=== PATIENT | male | born 1950 | race Caucasian/White ===

== ENCOUNTER 2016-09-13 06:50 | Day surgery (SDC) | payer BC, MEDICARE, OTHER ==
[2016-09-08 09:24] VITALS: BMI 32.9
--- NOTE | 2016-09-13 05:49 | P.GSHP ---
History of Present Illness H&P Date: 09/13/16 CHIEF COMPLAINT: Colon screen HISTORY OF PRESENT ILLNESS: The patient is a 66-year-old male who presents for colon screen. Lower endoscopy was offered for further evaluation and management. PAST MEDICAL HISTORY: Please see list. PAST SURGICAL HISTORY: Please see list. MEDICATIONS: Please see list. ALLERGIES: Please see list. SOCIAL HISTORY: No illicit drug use FAMILY HISTORY: No reports of Crohn disease or ulcerative colitis. REVIEW OF ORGAN SYSTEMS: CONSTITUTIONAL: No reports of fevers or chills. PHYSICAL EXAM: VITAL SIGNS: Stable GENERAL: Well-developed pleasant in no acute distress. HEENT: No scleral icterus. Extraocular movements grossly intact. Moist buccal mucosa. NECK: Supple without lymphadenopathy. CHEST: Unlabored respirations. Equal bilateral excursions. CARDIOVASCULAR: Regular rate and rhythm. Distal 2+ pulses. ABDOMEN: Soft, nontender, nondistended. MUSCULOSKELETAL: No clubbing, cyanosis, or edema. ASSESSMENT: 1. High-risk colon polyps. 2. Personal history of colon cancer. 3. Diabetes type 2. 4. Coronary artery disease. PLAN: 1. Benefits and risks of colonoscopy were described. Given his personal history of high-risk polyps and colon cancer, I have recommended repeat lower endoscopy at minimum anywhere between 1-3 years. This will be sooner pending results of his recent colonoscopy. Past Medical History Past Medical History: Cancer, COPD, Diabetes Mellitus, Hyperlipidemia, Hypertension Additional Past Medical History / Comment(s): hx of colon cancer, hx of bowel blockage, states has 2 "blockages in heart" current upper respitory symptoms, states cough, no fever, not coughing up anything History of Any Multi-Drug Resistant Organisms: None Reported Past Surgical History: Bowel Resection Past Anesthesia/Blood Transfusion Reactions: No Reported Reaction Past Psychological History: No Psychological Hx Reported Smoking Status: Former smoker Past Alcohol Use History: None Reported Additional Past Alcohol Use History / Comment(s): states quit smoking 2006, smoked 1ppd since age 11,(1961) Past Drug Use History: None Reported - Past Family History Father Family Medical History: CVA/TIA Sister(s) Family Medical History: Cancer Additional Family Medical History / Comment(s): ovarian cancer Medications and Allergies Home Medications Medication Instructions Recorded Confirmed Type Albuterol Inhaler [Ventolin 2 puff INHALATION RT-Q4H PRN 05/18/14 09/08/16 History Inhaler] Aspirin EC [Ecotrin] 81 mg PO DAILY 05/18/14 09/08/16 History Carvedilol [Coreg] 12.5 mg PO BID 05/18/14 09/08/16 History Lisinopril 40 mg PO DAILY 05/18/14 09/08/16 History Multivitamin [Men's Multi-Vitamin] 1 tab PO DAILY 05/18/14 09/08/16 History Simvastatin [Zocor] 10 mg PO HS 05/18/14 09/08/16 History Triamterene-Hctz 37.5-25Mg 1 cap PO DIRECTED PRN 05/18/14 09/08/16 History [Dyazide 37.5-25 Capsule] metFORMIN HCL [Glucophage] 500 mg PO BID 05/18/14 09/08/16 History Cholecalciferol [Vitamin D3] 1,000 unit PO DAILY 08/17/15 09/08/16 History Fish Oil/Dha/Epa [Fish Oil 1,200 1 cap PO BID 08/17/15 09/08/16 History mg Fish Oil] Tiotropium Finger [Spiriva 1 puff INHALATION RT-DAILY 08/17/15 09/08/16 History Respimat] Ubidecarenone [Co Q-10] 100 mg PO DAILY 08/17/15 09/08/16 History Albuterol Nebulized [Ventolin 1 applic INHALATION DIRECTED PRN 09/08/1609/08 History Nebulized] Diphenhydra/Phenyleph/Acetamin 1 applic PO DIRECTED PRN 09/08/16 09/08/16 History [Theraflu Nt Severe Cld-Cgh Pkt] cloNIDine HCL [Catapres] 0.1 mg PO BID 09/08/16 09/08/16 History Allergies Allergy/AdvReac Type Severity Reaction Status Date / Time No Known Allergies Allergy Verified 08/17/15 19:40
[~2016-09-13 06:50] MED LIST: LACTATED RINGERS 1,000 ML IV SCH; LIDOCAINE 1% 20 ML VIAL (10MG/ML) FOR IV START INTRADERMA PRN
[2016-09-13] MEDS ORDERED: LACTATED RINGERS 1,000 ML IV ONE (07:07)
[2016-09-13 07:10] VITALS: TEMP 96.8
[2016-09-13 07:34] LABS: Glucose,Whole Blood 135 mg/dL (75-99)
[2016-09-13] MEDS ORDERED: LIDOCAINE 1% INJ 10MG/ML (20 ML MDV) ONE (07:38)
[2016-09-13] MEDS ORDERED: PROPOFOL 10 MG/ML 20 ML VIAL IV ONE (07:38)
--- NOTE | 2016-09-13 08:03 | P.PCN ---
Date of Procedure: 09/13/16 Description of Procedure: PREOPERATIVE DIAGNOSIS: Colonoscopy screening. History of colon cancer. History of colon polyps. POSTOPERATIVE DIAGNOSIS: Colonoscopy screening. Diverticulosis, scattered, moderate. History of colon cancer. History of colon polyps. Benign neoplasm at ileocecal anastomosis. Lipoma at mid transverse colon, 90 cm. OPERATION: Colonoscopy to the ileocecal valve and appendiceal orifice. Colonoscopy with snare polypectomy at ileocecal anastomosis. SURGEON: Lacie Lockhart MD. ANESTHESIA: MAC. INDICATIONS: The patient is a 66-year-old male who presents for colonoscopy screening. He has personal history of colon cancer as well as colon polyps. His colon cancer was treated over 5 years ago. Last colonoscopy was within 3 years. Benefits and risks were described and informed consent was obtained. DESCRIPTION OF PROCEDURE: The patient had undergone Gatorade, MiraLAX and Dulcolax prep. He had been brought into the operating room and laid in the left lateral decubitus position. After adequate intravenous sedation, the rectum was examined with 2% lidocaine jelly. No external hemorrhoids were encountered. The rectal tone was within normal limits. No lesions were palpated in the rectal vault. An Olympus colonoscope was advanced until the ileocecal valve and appendiceal orifice were clearly viewed. The sigmoid colon was moderately redundant and tortuous. Abdominal wall pressure was required to obtain used to the proximal colon. The prep was fair with clear visualization of the mucosal folds. The scope was removed with visualization of each mucosal fold. A 8 mm tubular adenoma was snare polypectomy at along the ileocecal anastomosis of the proximal colon. At 90 cm from the anal verge/proximal transverse colon, a 1 cm benign lipoma was identified. Moderate large scattered diverticulosis was encountered. No evidence of focal colitis was found. Retroflexion of the scope demonstrated grade 1 internal hemorrhoids without active bleeding or inflammation. The colon was desufflated. The patient had tolerated the procedure well. Withdrawal time was over 6 minutes. FINDINGS: Internal hemorrhoids, grade 1 No external prolapsed hemorrhoids. No arteriovenous malformations. Tubular adenoma along the ileocecal anastomosis. Moderate and severe pandiverticulosis. Lipoma, 1 cm at mid transverse colon without obstruction of the lumen. No focal colitis. RECOMMENDATIONS: Repeat lower endoscopy in 2-3 years with history of colon cancer multiple colon polyps, 2019.
[2016-09-13 08:25] VITALS: BP 125/85; PULSE 85; RESP 18
== END 2016-09-13 08:45 | disposition home or self-care (01) ==
LOC: ORWHC2ENDO 06:50
PROVIDERS: ATTEND Surgery Plastic and Reconstructive Surgery
DX: Z12.11 Encounter for screening for malignant neoplasm of colon (principal); D12.0 Benign neoplasm of cecum; Z86.010 Personal history of colon polyps; K57.30 Diverticulosis of large intestine without perforation or abscess without bleeding; Z85.038 Personal history of other malignant neoplasm of large intestine; I10 Essential (primary) hypertension; E78.5 Hyperlipidemia, unspecified; E11.9 Type 2 diabetes mellitus without complications; I25.10 Atherosclerotic heart disease of native coronary artery without angina pectoris; J44.9 Chronic obstructive pulmonary disease, unspecified; I25.2 Old myocardial infarction; J45.909 Unspecified asthma, uncomplicated; Z90.49 Acquired absence of other specified parts of digestive tract; Z87.891 Personal history of nicotine dependence; Z79.84 Long term (current) use of oral hypoglycemic drugs; Z79.82 Long term (current) use of aspirin; Z79.899 Other long term (current) drug therapy
CPT/HCPCS: 88305; 45385; J2001; J2704; 99153

== ENCOUNTER → 2016-09-19 | Outpatient (CLI) | payer BC, OTHER | END | disposition home or self-care (01) | LOC: RADECHMAIN 11:46 | PROVIDERS: ATTEND Internal Medicine Cardiovascular Disease | DX: R00.1 Bradycardia, unspecified (principal); R00.0 Tachycardia, unspecified | CPT/HCPCS: 93225; 93226 ==

== ENCOUNTER → 2016-11-13 | Outpatient (CLI) | payer OTHER ==
--- NOTE | 2016-11-13 11:22 | CT ---
EXAMINATION TYPE: CT abdomen pelvis wo con DATE OF EXAM: 11/13/2016 11:03 AM COMPARISON: NONE INDICATION: Right flank pain DLP: 1192 mGycm, Automated exposure control for dose reduction was used. CONTRAST: 0 mL of Omnipaque 300. Study performed without Oral Contrast TECHNIQUE: Axial images were obtained from above the diaphragm to the pubic rami in the axial plane a t 5 mm thick sections. Reconstructed images are reviewed on the computer in the coronal plane. FINDINGS: Limited CT sections are obtained the lung bases. The lung bases are clear. Coronary artery calcific ation is present. CT ABDOMEN: Liver: Normal Spleen: Normal Pancreas: Normal Adrenal glands: The adrenal glands are normal. Gallbladder: Normal Kidneys: No masses are evident. No hydronephrosis is present. There is a 2.8 cm cyst on the anterio r left mid kidney measuring -1 Hounsfield units. A subtle upper pole renal cyst may be present measur ing 1.8 cm and 11 Hounsfield units. There is a cyst at the inferior pole right kidney measuring 2.7 c m and -12 Hounsfield units. An exophytic oval density measuring 1.6 cm on the lateral inferior pole r ight kidney measuring 0 Hounsfield units. No renal stones are evident. No hydronephrosis is present. Aorta: Vascular calcification is within the aorta. Inferior vena cava: Normal. There is subtle increased density within the mesentery with a few small mesenteric lymph nodes within the left midabdomen. Consider mesenteric adenitis left midabdomen. Correlate with location of the pa tient's pain. CT PELVIS: Diverticular changes are within the sigmoid colon. No suspicious inflammatory changes to suggest acut e diverticulitis is evident. Loops of bowel lack oral contrast limiting their evaluation. Partial hem icolectomy appears to been performed. Postsurgical changes are within the right midabdomen of bowel. Appendix: Not identified Urinary bladder: Normal. Genitourinary structures: Prostate is enlarged and contains calcification. Osseous structures: No suspicious lytic or sclerotic lesions. IMPRESSIONS: 1. No right renal or ureteral stones evident. No hydronephrosis is present. 2. Bilateral renal cysts. 3. Suggestion of subtle mesenteric adenitis within the left midabdomen.
[2016-11-13 11:27] LABS: ALT 47 U/L (21-72); AST 32 U/L (17-59); Alkaline Phosphatase 108 U/L (38-126); Anion Gap 14 mmol/L; Blood Urea Nitrogen 18 mg/dL (9-20); Calcium 11.3 mg/dL (8.4-10.2); Carbon Dioxide 23 mmol/L (22-30); Chloride 109 mmol/L (98-107); Glucose 139 mg/dL (74-99); Non-African American GFR(MDRD) >60 (>60 ml/min/1.73 sqM); Potassium 4.6 mmol/L (3.5-5.1); Sodium 146 mmol/L (137-145); Total Bilirubin 0.8 mg/dL (0.2-1.3); Total Protein 7.5 g/dL (6.3-8.2)
[2016-11-13 11:28] LABS: Basophils % (A) 1 %; CH 30.6; CHCM 33.3; Eosinophils # (A) 0.1 k/uL (0-0.7); Eosinophils % (A) 2 %; HCT 47.4 % (39.0-53.0); HDW 2.78; HGB 15.9 gm/dL (13.0-17.5); Luc # (Auto) 0.15; Luc % (Auto) 2; Lymphocytes # (A) 1.6 k/uL (1.0-4.8); Lymphocytes % (A) 23 %; MCHC 33.6 g/dL (31.0-37.0); MCV 92.4 fL (80.0-100.0); Mean Platelet Volume 8.2; Monocytes # (A) 0.5 k/uL (0-1.0); Monocytes % (A) 8 %; Neutrophils # (A) 4.6 k/uL (1.3-7.7); Neutrophils % (A) 65 %; RBC 5.13 m/uL (4.30-5.90); RDW 13.4 % (11.5-15.5); WBC (Perox) 6.81
[2016-11-13 11:53] LABS: Appearance,Urine Clear (Clear); Bilirubin,Urine Negative (Negative); Calcium Oxalate Crystals,Urine Many /hpf; Glucose,Urine (UA) 2+ (Negative); Ketones,Urine Trace (Negative); Leukocyte Esterase,Urine Small (Negative); Mucus,Urine Rare /hpf; Nitrite,Urine Negative (Negative); Particle Count 2857; Protein,Urine Trace (Negative); RBC,Urine 11 /hpf (0-5); Specific Gravity,Urine 1.024 (1.001-1.035); Squamous Epithelial Cell,Urine <1 /hpf (0-4); UA Billing (MACRO vs. MICRO) MICRO; Urobilinogen,Urine <2.0 mg/dL (<2.0); WBC,Urine 6 /hpf (0-5)
== END | disposition home or self-care (01) ==
LOC: RADCTMAIN 09:40
PROVIDERS: ATTEND Internal Medicine Critical Care Medicine
DX: N20.0 Calculus of kidney (principal)
CPT/HCPCS: 36415; 74176; 80053; 81001; 85025; 87086

== ENCOUNTER → 2016-11-14 | Outpatient (CLI) | payer OTHER | END | disposition home or self-care (01) | LOC: LABWHC1 08:40 | PROVIDERS: ATTEND Internal Medicine Critical Care Medicine | DX: E83.52 Hypercalcemia (principal) | CPT/HCPCS: 36415; 83970 ==

== ENCOUNTER → 2016-11-27 | Outpatient (CLI) | payer OTHER ==
--- NOTE | 2016-11-27 16:02 | NM ---
EXAMINATION TYPE: NM parathyroid DATE OF EXAM: 11/27/2016 3:44 PM COMPARISON: NONE HISTORY: 66-year-old male elevated lab findings TECHNIQUE: Following administration of 24.7 mCi Tc99m Sestamibi. Anterior projection images of the ne ck and chest were obtained 10 minutes and 3 hours post injection FINDINGS: Thyroid tracer washout: Delayed images demonstrate partial, near complete tracer washout from the thy roid. Parathyroid uptake: None. The 3 hour delayed images do not demonstrate any focal abnormal persistent uptake in the region of the parathyroid glands to suggest parathyroid adenoma. Normal uptake: There is physiological tracer uptake in the salivary glands and thyroid gland. IMPRESSION: No scintigraphic evidence for parathyroid adenoma.
== END | disposition home or self-care (01) ==
LOC: RADNMMAIN 11:29
PROVIDERS: ATTEND Internal Medicine Critical Care Medicine
DX: R79.9 Abnormal finding of blood chemistry, unspecified (principal)
CPT/HCPCS: 78070; A9500

== ENCOUNTER 2017-10-11 14:01 | Emergency (ER) | payer OTHER ==
[2017-10-11 14:53] LABS: Basophils % (A) 1 %; Eosinophils # (A) 0.2 k/uL (0-0.7); Eosinophils % (A) 2 %; HCT 43.6 % (39.0-53.0); HGB 14.7 gm/dL (13.0-17.5); Lymphocytes # (A) 1.6 k/uL (1.0-4.8); Lymphocytes % (A) 21 %; MCH 29.6 pg (25.0-35.0); MCHC 33.9 g/dL (31.0-37.0); MCV 87.4 fL (80.0-100.0); Mean Platelet Volume 7.6; Monocytes # (A) 0.5 k/uL (0-1.0); Monocytes % (A) 6 %; Neutrophils # (A) 5.4 k/uL (1.3-7.7); Neutrophils % (A) 69 %; Platelet Count 174 k/uL (150-450); RBC 4.98 m/uL (4.30-5.90); RDW 13.9 % (11.5-15.5); WBC 7.8 k/uL (3.8-10.6)
[2017-10-11 14:59] LABS: ALT 26 U/L (21-72); AST 13 U/L (17-59); Albumin 4.2 g/dL (3.5-5.0); Alkaline Phosphatase 104 U/L (38-126); Anion Gap 11 mmol/L; Blood Urea Nitrogen 16 mg/dL (9-20); Calcium 11.6 mg/dL (8.4-10.2); Carbon Dioxide 25 mmol/L (22-30); Chloride 108 mmol/L (98-107); Glucose 113 mg/dL (74-99); Potassium 4.4 mmol/L (3.5-5.1); Sodium 144 mmol/L (137-145); Total Bilirubin 0.4 mg/dL (0.2-1.3); Total Protein 7.1 g/dL (6.3-8.2)
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
--- NOTE | 2017-10-11 15:29 | XR ---
EXAMINATION TYPE: XR foot complete LT DATE OF EXAM: 10/11/2017 COMPARISON: NONE HISTORY: Nonhealing wound lateral side of foot TECHNIQUE: Three-view left foot FINDINGS: There is an oblique fracture of the mid second metatarsal. There is displacement of the dis odilia fracture fragment with the more proximal portion of the distal fracture fragment adjacent to the third metatarsal. There is an oblique fracture through the mid diaphysis third metatarsal. This may have somewhat rafi h margins. This may be an old fracture with nonunion. There is an oblique fracture of the proximal metaphysis first metatarsal. There is slight lateral d isplacement of the distal fracture fragment. There appears be a subtle nondisplaced fracture of the proximal metaphysis proximal phalanx third dig it. Similar appearance may be at the proximal metaphysis proximal phalanx fourth digit suspicious for an additional nondisplaced fracture.. Soft tissue swelling is over the distal foot. There appears to be some soft tissue injury evident ove r the distal dorsal foot. Large plantar calcaneal and Achilles tendon heel spurs are present. IMPRESSION: 1. Fractures of the first second and third diaphyseal metatarsals. Consider Lisfranc fracture within the differential. Others displacement of these fracture fragments discussed above. 2. Nondisplaced fractures of the proximal metaphyseal third and fourth digits may be present. 3. Calcaneal heel spurs. 4. Soft tissue swelling distal dorsal foot
[2017-10-11] MEDS ORDERED: CLINDAMYCIN 900 MG in DEXTROSE 5% IN WATER 50 ML IVPB STA ×2 (16:03)
[2017-10-11 16:59] VITALS: BP 162/94; PULSE 73; RESP 16; TEMP 98.6
== END 2017-10-11 16:59 | disposition home or self-care (01) ==
LOC: EC 14:01
DX: L08.9 Local infection of the skin and subcutaneous tissue, unspecified (principal); S92.302S Fracture of unspecified metatarsal bone(s), left foot, sequela; R40.2412 Glasgow coma scale score 13-15, at arrival to emergency department; E78.5 Hyperlipidemia, unspecified; I10 Essential (primary) hypertension; J44.9 Chronic obstructive pulmonary disease, unspecified; Z87.891 Personal history of nicotine dependence; Z79.1 Long term (current) use of non-steroidal anti-inflammatories (NSAID); Z79.51 Long term (current) use of inhaled steroids; Z79.82 Long term (current) use of aspirin; Z79.899 Other long term (current) drug therapy; Z85.038 Personal history of other malignant neoplasm of large intestine; Z90.49 Acquired absence of other specified parts of digestive tract; X58.XXXS Exposure to other specified factors, sequela
CPT/HCPCS: 36415; 80053; 85025; 87070; 87075; 87077; 87186; 87205; 96365; 99283

== ENCOUNTER 2017-12-31 17:55 | Inpatient (IN) | payer OTHER, MEDICARE ==
[2017-12-31] MEDS ORDERED: SODIUM CHLORIDE 0.9% 500 ML IV STA (18:17)
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
[2017-12-31 18:30] LABS: Basophils % (A) 1 %; Eosinophils # (A) 0.1 k/uL (0-0.7); Eosinophils % (A) 2 %; HCT 44.6 % (39.0-53.0); HGB 14.7 gm/dL (13.0-17.5); Lymphocytes # (A) 1.2 k/uL (1.0-4.8); Lymphocytes % (A) 16 %; MCH 29.5 pg (25.0-35.0); MCHC 32.9 g/dL (31.0-37.0); MCV 89.5 fL (80.0-100.0); Mean Platelet Volume 7.7; Monocytes # (A) 0.4 k/uL (0-1.0); Monocytes % (A) 6 %; Neutrophils # (A) 5.6 k/uL (1.3-7.7); Neutrophils % (A) 75 %; Platelet Count 140 k/uL (150-450); RBC 4.98 m/uL (4.30-5.90); RDW 15.5 % (11.5-15.5); WBC 7.5 k/uL (3.8-10.6)
[2017-12-31 18:43] LABS: ALT 27 U/L (21-72); AST 16 U/L (17-59); Albumin 4.2 g/dL (3.5-5.0); Alkaline Phosphatase 84 U/L (38-126); Anion Gap 13 mmol/L; Blood Urea Nitrogen 11 mg/dL (9-20); Calcium 10.6 mg/dL (8.4-10.2); Carbon Dioxide 24 mmol/L (22-30); Chloride 105 mmol/L (98-107); Glucose 112 mg/dL (74-99); Magnesium 1.8 mg/dL (1.6-2.3); Potassium 4.6 mmol/L (3.5-5.1); Sodium 142 mmol/L (137-145); Total Bilirubin 0.4 mg/dL (0.2-1.3); Total Protein 6.5 g/dL (6.3-8.2)
[2017-12-31 18:55] LABS: Creatine Kinase 37 U/L (55-170)
[2017-12-31 19:02] LABS: D-Dimer 0.45 mg/L FEU (<0.60); INR 1.1 (<1.2); Prothrombin Time 10.4 sec (9.0-12.0)
[2017-12-31 19:07] LABS: Creatine Kinase MB 0.3 ng/mL (0.0-2.4); Partial Thromboplastin Time 20.7 sec (22.0-30.0); Troponin I <0.012 ng/mL (0.000-0.034)
--- NOTE | 2017-12-31 19:33 | XR ---
EXAMINATION: XR chest 2V DATE AND TIME: 12/31/2017 6:55 PM ORDERING PROVIDER: Nikhil Ward MD CLINICAL INDICATION: syncope TECHNIQUE: PA and lateral COMPARISON: 08/18/2015 DESCRIPTION: The lungs are clear. The pleural spaces are negative. The cardiac silhouette is not enlarged. The mediastinal and pleural silhouettes are unremarkable. The skeletal structures are intact without focal findings. The soft tissues are unremarkable. IMPRESSION: NO ACUTE PROCESS.
--- NOTE | 2017-12-31 19:50 | CT ---
EXAMINATION: CT brain wo con DATE AND TIME: 12/31/2017 7:23 PM ORDERING PROVIDER: Nikhil Ward MD CLINICAL INDICATION: Pain syncope TECHNIQUE: Standard departmental protocol. DLP 1060.90 mGy-cm. COMPARISON: None. DESCRIPTION: The calvarium is intact. There is no intracranial hemorrhage. There is no mass or mass e ffect. There is no definite new attenuation defect. Remainder of the intra-axial and extra-axial comp artment examination is unremarkable. The paranasal sinuses, middle ear cavities, and mastoid sinus ai r cells are clear. The orbits are intact. IMPRESSION: NO ACUTE PROCESS.
[2017-12-31] MEDS ORDERED: NITROGLYCERIN SL TABS 0.4 MG TAB SUBLINGUAL PRN (20:03)
[2017-12-31] MEDS ORDERED: hydrALAZINE HCL 20 MG/ML 1 ML VIAL IVP STA ×2 (20:09→20:52)
[2017-12-31] MEDS: hydrALAZINE HCL 20 MG/ML 1 ML VIAL IVP STA ×2 (20:20→20:53)
[2017-12-31 21:14] LABS: Glucose,Whole Blood 115 mg/dL (75-99)
[2017-12-31] MEDS ORDERED: NON-FORMULARY DRUG (Aspirin Ec 81 MG) PO SCH (23:00)
[2017-12-31] MEDS ORDERED: MELATONIN 3 MG TABLET PO PRN (23:19)
[2017-12-31 23:47] LABS: Appearance,Urine Clear (Clear); Bilirubin,Urine Negative (Negative); Blood,Urine Negative (Negative); Color,Urine Colorless; Glucose,Urine (UA) Negative (Negative); Ketones,Urine Negative (Negative); Leukocyte Esterase,Urine Negative (Negative); Nitrite,Urine Negative (Negative); PH, Urine 7.5 (5.0-8.0); Protein,Urine Negative (Negative); Specific Gravity,Urine 1.003 (1.001-1.035); Urobilinogen,Urine <2.0 mg/dL (<2.0)
[2018-01-01 00:12] LABS: Creatine Kinase 33 U/L (55-170)
[2018-01-01 00:26] LABS: Creatine Kinase MB 0.3 ng/mL (0.0-2.4); Troponin I <0.012 ng/mL (0.000-0.034)
[2018-01-01] MEDS: DOCUSATE 100 MG CAP PO SCH ×3 (01:57→19:51)
[2018-01-01] MEDS: HEPARIN SODIUM,PORCINE 5,000 UNIT/ML 1 ML VIAL SQ SCH ×3 (01:57→19:52)
[2018-01-01] MEDS: ATORVASTATIN 10 MG TAB PO SCH ×2 (01:57→19:51)
[2018-01-01] MEDS: PANTOPRAZOLE 40 MG/10 ML VIAL IVP SCH ×2 (01:57→08:30)
[2018-01-01] MEDS: ACETAMINOPHEN TAB 500 MG TAB PO PRN ×3 (01:58→18:31)
[2018-01-01 02:57] LABS: Glucose,Whole Blood 109 mg/dL (75-99)
[2018-01-01] MEDS ORDERED: ONDANSETRON 4 MG/2 ML VIAL IVP PRN (03:04)
[2018-01-01 05:58] LABS: Basophils % (A) 0 %; Eosinophils # (A) 0.1 k/uL (0-0.7); Eosinophils % (A) 1 %; HCT 43.6 % (39.0-53.0); HGB 14.4 gm/dL (13.0-17.5); Lymphocytes # (A) 1.3 k/uL (1.0-4.8); Lymphocytes % (A) 14 %; Mean Platelet Volume 7.4; Monocytes # (A) 0.5 k/uL (0-1.0); Monocytes % (A) 5 %; Neutrophils # (A) 6.9 k/uL (1.3-7.7); Neutrophils % (A) 78 %; Platelet Count 164 k/uL (150-450); RBC 4.79 m/uL (4.30-5.90); RDW 15.6 % (11.5-15.5); WBC 8.9 k/uL (3.8-10.6)
[2018-01-01 06:10] LABS: Anion Gap 13 mmol/L; Blood Urea Nitrogen 9 mg/dL (9-20); Calcium 10.8 mg/dL (8.4-10.2); Carbon Dioxide 24 mmol/L (22-30); Chloride 108 mmol/L (98-107); Cholesterol 103 mg/dL (<200); Glucose 108 mg/dL (74-99); HDL Cholesterol 36 mg/dL (40-60); LDL Cholesterol,Calculated 47 mg/dL (0-99); Magnesium 1.9 mg/dL (1.6-2.3); Sodium 145 mmol/L (137-145); Triglycerides 102 mg/dL (<150)
[2018-01-01 06:12] LABS: Glucose,Whole Blood 115 mg/dL (75-99)
[2018-01-01 06:22] LABS: Creatine Kinase 28 U/L (55-170)
[2018-01-01 06:34] LABS: Creatine Kinase MB 0.3 ng/mL (0.0-2.4); Troponin I <0.012 ng/mL (0.000-0.034)
[2018-01-01] MEDS: ALBUTEROL NEBULIZED 2.5 MG/3 ML INHALATION PRN ×2 (07:44→20:29)
[2018-01-01] MEDS: SYMBICORT 160-4.5 MCG INHALER INHALATION SCH ×3 (07:45→20:13)
[2018-01-01] MEDS ORDERED: ASPIRIN 325 MG TAB PO SCH (09:00)
[2018-01-01 09:22] VITALS: BMI 29.0
[2018-01-01 12:00] LABS: Glucose,Whole Blood 96 mg/dL (75-99)
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
--- NOTE | 2018-01-01 14:13 | US ---
EXAMINATION TYPE: US carotid duplex BILAT DATE OF EXAM: 01/01/2018 COMPARISON: NONE CLINICAL HISTORY: syncope. EXAM MEASUREMENTS: RIGHT: Peak Systolic Velocity (PSV) cm/sec ----- Right CCA: 83.3 ----- Right ICA: 91.2 ----- Right ECA: 100.0 ICA/CCA ratio: 1.1 RIGHT: End Diastole cm/sec ----- Right CCA: 15.5 ----- Right ICA: 23.3 ----- Right ECA: 7.9 LEFT: Peak Systolic Velocity (PSV) cm/sec ----- Left CCA: 106.2 ----- Left ICA: 102.3 ----- Left ECA: 120.0 ICA/CCA ratio: 1.0 LEFT: End Diastole cm/sec ----- Left CCA: 11.6 ----- Left ICA: 21.5 ----- Left ECA: 7.7 VERTEBRALS (direction of flow): Right Vertebral: Antegrade Left Vertebral: Antegrade Rhythm: Arrhythmia Grayscale images show mild peripheral plaque at carotid bulb level, right worse than left. Velocity m easurements and ratios remain within normal limits and bilateral internal carotid arteries. IMPRESSION: No hemodynamically significant stenosis is seen in either internal carotid artery. Nikhil hnologist did note some cardiac arrhythmia during real-time scanning. If this is not known finding fu rther investigation with cardiac Holter monitoring would be advised.
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
--- NOTE | 2018-01-01 16:31 | ECHOF ---
Referral Reason:syncope MEASUREMENTS -------- HEIGHT: 167.6 cm WEIGHT: 113.9 kg BP: 152/87 RVIDd: 2.8 cm (< 3.3) IVSd: 1.4 cm (0.6 - 1.1) LVIDd: 4.6 cm (3.9 - 5.3) LVPWd: 1.3 cm (0.6 - 1.1) IVSs: 1.9 cm LVIDs: 2.5 cm LVPWs: 1.7 cm LA Diam: 1.3 cm (2.7 - 3.8) LAESV Index (A-L): 18.61 ml/m Ao Diam: 4.1 cm (2.0 - 3.7) AV Cusp: 2.7 cm (1.5 - 2.6) LA Diam: 3.6 cm (2.7 - 3.8) MV E [place]: 1.42 m/s MV DecT: 193 ms MV A [place]: 0.85 m/s MV E/A Ratio: 1.66 AV maxP.29 mmHg AV meanP.90 mmHg RAP: 10.00 mmHg RVSP: 21.81 mmHg FINDINGS -------- Resting bradycardia (HR<60bpm). This was a technically difficult study with suboptimal views. The left ventricular size is normal. There is mild concentric left ventricular hypertrophy. Left ventricular systolic function is hyperdynamic with an estimated EF of >70%. The right ventricle is normal in size and function. Normal LA size by volume 22+/-6 ml/m2. RA appears enlarged. 3ml of Lumason was utilized for enhancement of images. There is mild aortic valve sclerosis. Trace amount of aortic regurgitation. There is no evidence of aortic stenosis. The mitral valve leaflets are mildly thickened. There is trace to mild mitral regurgitation. Trace tricuspid regurgitation present. Right ventricular systolic pressure is normal at < 35 mmHg. There is no evidence of pulmonary hypertension. The pulmonic valve was not well visualized. The aortic root size is normal. The IVC is dilated with normal collapse. There is no pericardial effusion. CONCLUSIONS -------- 1. Resting bradycardia (HR<60bpm). 2. This was a technically difficult study with suboptimal views. 3. The left ventricular size is normal. 4. There is mild concentric left ventricular hypertrophy. 5. Left ventricular systolic function is hyperdynamic with an estimated EF of >70%. 6. Normal LA size by volume 22+/-6 ml/m2. 7. RA appears enlarged. 8. 3ml of Lumason was utilized for enhancement of images. 9. There is mild aortic valve sclerosis. 10. Trace amount of aortic regurgitation. 11. The mitral valve leaflets are mildly thickened. 12. There is trace to mild mitral regurgitation. 13. Trace tricuspid regurgitation present. 14. Right ventricular systolic pressure is normal at < 35 mmHg. 15. There is no evidence of pulmonary hypertension. 16. The pulmonic valve was not well visualized. 17. The aortic root size is normal. 18. The IVC is dilated with normal collapse. 19. There is no pericardial effusion. IRRIGATION EQUIPMENT MECHANIC: Florin Mota RDCS
[2018-01-01 17:13] LABS: Glucose,Whole Blood 142 mg/dL (75-99)
[2018-01-01] MEDS: HYDROcodone/APAP 10-325MG 1 EACH TAB PO PRN (18:32)
[2018-01-01] MEDS: amLODIPine 5 MG TAB PO SCH (19:52)
[2018-01-01 20:51] LABS: Glucose,Whole Blood 132 mg/dL (75-99)
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
[2018-01-02 06:16] LABS: Glucose,Whole Blood 99 mg/dL (75-99)
[2018-01-02 07:49] VITALS: BP 144/63; RESP 18; TEMP 98.1
[2018-01-02] MEDS: DOCUSATE 100 MG CAP PO SCH (07:53)
[2018-01-02] MEDS: amLODIPine 5 MG TAB PO SCH (07:53)
[2018-01-02] MEDS: ACETAMINOPHEN TAB 500 MG TAB PO PRN (07:53)
[2018-01-02] MEDS: PANTOPRAZOLE 40 MG/10 ML VIAL IVP SCH (07:53)
[2018-01-02] MEDS: HEPARIN SODIUM,PORCINE 5,000 UNIT/ML 1 ML VIAL SQ SCH (07:54)
[2018-01-02] MEDS: ALBUTEROL NEBULIZED 2.5 MG/3 ML INHALATION PRN ×2 (08:38→11:46)
[2018-01-02] MEDS: SYMBICORT 160-4.5 MCG INHALER INHALATION SCH (08:38)
[2018-01-02 08:54] VITALS: PULSE 56
[2018-01-02] MEDS ORDERED: ASPIRIN 81 MG PO SCH (09:00)
[2018-01-02 11:39] LABS: Glucose,Whole Blood 79 mg/dL (75-99)
[2018-01-02] MEDS: HYDROcodone/APAP 10-325MG 1 EACH TAB PO PRN (12:08)
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
--- NOTE | 2018-01-02 17:01 | PN ---
PROGRESS NOTE Mr. Rakesh Neal is a 67-year-old gentleman seen by me yesterday. He had a 2 as to 1 heart block, but after holding Coreg for 48 hours, he is back in sinus rhythm with a UT interval that is within normal limits at upper limits of normal and there is no evidence of any second-degree heart block. He is asymptomatic ambulating. Vital signs are stable. S1-S2 heard normally. Lungs are clear. Abdomen and lower extremity exam is unchanged. Plan is to stay off the beta blockers and he can be discharged on current medical regimen. I explained to the patient and that he will need to be followed closely and he will probably require a Holter also as an outpatient. I explained to him that he has underlying conduction system disease and he should not be on any rate lowering agents. The patient's thyroid function tests were normal. Echocardiogram also revealed preserved systolic function. RADHA / MANUELN: [id number] /
--- NOTE | 2018-01-03 19:33 | P.DS ---
Providers Date of admission: 12/31/17 20:03 Expected date of discharge: 01/02/18 Attending physician: Melvi Carmona Consults: 12/31/17 20:03 Consult Physician Urgent Consulting Provider: [facility] Consult Reason/Comments: Syncope, bradycardia Do you want consulting provider notified?: Yes Primary care physician: [facility] Course: Final Diagnoses: -Syncope: Secondary to second-degree AV block Mobitz type II with 2 to 1 block.Coreg discontinued. CAT scan of the head and the bilateral carotid Doppler which did not show any significant abnormality. -COPD without any acute exacerbation -Recent traumatic pneumothorax patient is saturating well now no issues with that at this time -Primary hyperparathyroidism -Coronary artery disease -Hypertension -Hyperlipidemia -Type 2 diabetes mellitus -History of gout Hospital course:65-year-old male with a history of COPD, on beta jaja Coreg came in with complaints of multiple syncopal episodes. found to have heart rate going down to 30s.patient's Coreg dose was recently decreased and patient is found to be in Mobitz type II second-degree AV block. Patient is off for a beta jaja. Monitored overnight. Patient was evaluated by cardiology. EKG repeated, reporting sinus rhythm with first-degree AV block. Significant clinical improvement. Cleared by cardiology for discharge. Patient is being discharged home in a stable condition with guarded prognosis. PHYSICAL EXAMINATION: GENERAL: The patient is alert and oriented x3, not in any acute distress. CARDIOVASCULAR: S1 and S2 present. No murmurs, rubs, or gallops. PULMONARY: Chest is clear to auscultation, no wheezing or crackles. ABDOMEN: Soft, nontender, nondistended, normoactive bowel sounds. No palpable organomegaly. NEUROLOGICAL: Gross neurological examination did not reveal any focal deficits. The impression and plan of care has been dictated as directed. : I performed a history and examination of this patient, discussed the same with the dictator. I agree with the dictator's note ,documented as a scribe. Any additional findings or plans will be noted. Time taken: 35 minutes Patient Condition at Discharge: Stable Plan - Discharge Summary Discharge Rx Participant: No New Discharge Prescriptions: New amLODIPine [Norvasc] 5 mg PO DAILY #30 tab Simvastatin 40 mg PO DAILY #1 tablet Continue Aspirin EC [Ecotrin Low Dose] 81 mg PO HS Colchicine [Colcrys] 0.6 mg PO DAILY PRN PRN Reason: Mild Pain Tiotropium [place] [Spiriva] 1 cap INHALATION RT-DAILY Budesonide/Formoterol Fumarate [Symbicort 160-4.5 Mcg Inhaler] 2 puff INHALATION RT-BID HYDROcodone/APAP 10-325MG [[place] 10-325] 1 tab PO DAILY PRN PRN Reason: moderate pain Allopurinol [Zyloprim] 100 mg PO DAILY traZODone HCL 50 mg PO HS PRN PRN Reason: Insomnia Acetaminophen Tab [Tylenol] 500 - 1,000 mg PO Q6HR PRN PRN Reason: Mild Pain Docusate [Colace] 200 mg PO BID DULoxetine HCL [Cymbalta] 60 mg PO HS metFORMIN HCL [Glucophage] 500 mg PO BID Methocarbamol [Robaxin] 500 mg PO Q8H PRN PRN Reason: Pain Discontinued Lisinopril 40 mg PO DAILY Carvedilol [Coreg] 3.125 mg PO BID Carvedilol [Coreg] 6.25 mg PO BID Simvastatin [Zocor] 10 mg PO HS Discharge Medication List Aspirin EC [Ecotrin Low Dose] 81 mg PO HS 05/18/14 [History] Budesonide/Formoterol Fumarate [Symbicort 160-4.5 Mcg Inhaler] 2 puff INHALATION RT-BID 10/11/17 [History] Colchicine [Colcrys] 0.6 mg PO DAILY PRN 10/11/17 [History] Tiotropium [place] [Spiriva] 1 cap INHALATION RT-DAILY 10/11/17 [History] Acetaminophen Tab [Tylenol] 500 - 1,000 mg PO Q6HR PRN 12/31/17 [History] Allopurinol [Zyloprim] 100 mg PO DAILY 12/31/17 [History] Docusate [Colace] 200 mg PO BID 12/31/17 [History] HYDROcodone/APAP 10-325MG [[place] 10-325] 1 tab PO DAILY PRN 12/31/17 [History] traZODone HCL 50 mg PO HS PRN 12/31/17 [History] DULoxetine HCL [Cymbalta] 60 mg PO HS 01/01/18 [History] Methocarbamol [Robaxin] 500 mg PO Q8H PRN 01/01/18 [History] metFORMIN HCL [Glucophage] 500 mg PO BID 01/01/18 [History] amLODIPine [Norvasc] 5 mg PO DAILY #30 tab 01/02/18 [Rx] Simvastatin 40 mg PO DAILY #1 tablet 01/03/18 [Rx] Follow up Appointment(s)/Referral(s): Umesh Lino MD [STAFF PHYSICIAN] - 01/24/18 8:30 am () Maninder Ramsay DO [Primary Care Provider] - 01/04/18 2:00 pm ([phone]: [phone]) Natalie Keene MD [STAFF PHYSICIAN] - 01/28/18 9:15 am Patient Instructions/Handouts: Heart Block (DC), Bradycardia (DC) Discharge Disposition: HOME SELF-CARE
== END 2018-01-02 12:37 | disposition home or self-care (01) | DRG 309 ==
LOC: EC 17:55 → 6SEL 20:03
PROVIDERS: ADMIT Hospitalist; ATTEND Hospitalist
DX: I44.1 Atrioventricular block, second degree (principal); M86.9 Osteomyelitis, unspecified; E11.621 Type 2 diabetes mellitus with foot ulcer; E11.69 Type 2 diabetes mellitus with other specified complication; L97.529 Non-pressure chronic ulcer of other part of left foot with unspecified severity; J44.9 Chronic obstructive pulmonary disease, unspecified; T44.7X5A Adverse effect of beta-adrenoreceptor antagonists, initial encounter; E21.0 Primary hyperparathyroidism; E78.00 Pure hypercholesterolemia, unspecified; E78.5 Hyperlipidemia, unspecified; I10 Essential (primary) hypertension; I25.10 Atherosclerotic heart disease of native coronary artery without angina pectoris; M10.9 Gout, unspecified; E66.9 Obesity, unspecified; M19.90 Unspecified osteoarthritis, unspecified site; Z79.899 Other long term (current) drug therapy; Z79.51 Long term (current) use of inhaled steroids; Z79.82 Long term (current) use of aspirin; Z90.49 Acquired absence of other specified parts of digestive tract; Z87.891 Personal history of nicotine dependence; Z85.038 Personal history of other malignant neoplasm of large intestine; Z79.84 Long term (current) use of oral hypoglycemic drugs; Y92.009 Unspecified place in unspecified non-institutional (private) residence as the place of occurrence of the external cause; Z68.28 Body mass index [BMI] 28.0-28.9, adult; Z80.9 Family history of malignant neoplasm, unspecified
CPT/HCPCS: 36415; 70450; 71046; 80048; 80053; 80061; 81003; 82550; 82553; 83735; 84443; 84484; 85025; 85379; 85610; 85730; 87086; 93005; 93306; 93880; 94640; 94760; 96361; 96374; 99285

== ENCOUNTER 2018-01-17 20:23 | Inpatient (IN) | payer OTHER, BC, MEDICARE ==
[2018-01-17] MEDS ORDERED: SODIUM CHLORIDE 0.9% 1,000 ML IV STA (20:42)
[2018-01-17] MEDS ORDERED: ATROPINE SULFATE 0.1 MG/ML 10ML SYRINGE IV STA ×2 (20:43)
[2018-01-17] MEDS ORDERED: MORPHINE SULFATE 2 MG/ML SYRINGE IVP STA (20:44)
[2018-01-17] MEDS ORDERED: LORazepam 2 MG/ML INJ IV STA (20:44)
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
[2018-01-17] MEDS ORDERED: NITROGLYCERIN SL TABS 0.4 MG TAB SUBLINGUAL PRN (21:03)
[2018-01-17 21:09] LABS: Basophils % (A) 0 %; Eosinophils # (A) 0.1 k/uL (0-0.7); Eosinophils % (A) 2 %; HCT 43.6 % (39.0-53.0); HGB 14.8 gm/dL (13.0-17.5); Lymphocytes # (A) 1.2 k/uL (1.0-4.8); Lymphocytes % (A) 13 %; MCH 30.6 pg (25.0-35.0); MCHC 33.9 g/dL (31.0-37.0); MCV 90.4 fL (80.0-100.0); Mean Platelet Volume 7.4; Monocytes # (A) 0.4 k/uL (0-1.0); Monocytes % (A) 4 %; Neutrophils # (A) 6.9 k/uL (1.3-7.7); Neutrophils % (A) 79 %; Platelet Count 162 k/uL (150-450); RBC 4.83 m/uL (4.30-5.90); RDW 14.8 % (11.5-15.5); WBC 8.7 k/uL (3.8-10.6)
[2018-01-17 21:18] LABS: INR 1.1 (<1.2); Partial Thromboplastin Time 22.5 sec (22.0-30.0); Prothrombin Time 10.5 sec (9.0-12.0)
[2018-01-17 21:25] LABS: Creatine Kinase 29 U/L (55-170)
[2018-01-17 21:27] LABS: Albumin 4.2 g/dL (3.5-5.0); Calcium 10.7 mg/dL (8.4-10.2); Magnesium 1.7 mg/dL (1.6-2.3); Phosphorus 2.6 mg/dL (2.5-4.5); Potassium 4.3 mmol/L (3.5-5.1); Total Bilirubin 0.5 mg/dL (0.2-1.3); Total Protein 6.7 g/dL (6.3-8.2)
--- NOTE | 2018-01-17 21:27 | XR ---
EXAMINATION TYPE: XR chest 1V portable DATE OF EXAM: 01/17/2018 COMPARISON: 12/31/2017 HISTORY: Short of breath TECHNIQUE: Single frontal view of the chest is obtained. FINDINGS: There is poor inspiration with some linear density at the lung bases. There is no heart fa ilure. There are chest leads. There are no hilar masses. Thoracic aorta is atheromatous. IMPRESSION: Subsegmental atelectasis at the lung bases is slightly worse than last exam. No heart fa ilure.
[2018-01-17] MEDS ORDERED: MIDAZOLAM 2 MG/2 ML VIAL ONE (21:33)
[2018-01-17] MEDS ORDERED: LIDOCAINE 2% INJ 20 MG/ML SQ ONE ×2 (21:35)
[2018-01-17] MEDS ORDERED: MIDAZOLAM 2 MG/2 ML VIAL IVP ONE (21:36)
[2018-01-17 21:37] LABS: Creatine Kinase MB 0.2 ng/mL (0.0-2.4); Troponin I <0.012 ng/mL (0.000-0.034)
[2018-01-17] MEDS ORDERED: SODIUM CHLORIDE 0.9% 500 ML IV ONE (21:40)
[2018-01-17] MEDS ORDERED: amLODIPine 5 MG TAB ONE (21:46)
[2018-01-17] MEDS ORDERED: amLODIPine 5 MG TAB PO ONE (21:48)
[2018-01-17] MEDS ORDERED: MORPHINE SULFATE 4 MG/ML SYRINGE ONE (21:58)
[2018-01-17] MEDS ORDERED: HYDROcodone/APAP 10-325MG 1 EACH TAB PO PRN (22:00)
[2018-01-17] MEDS ORDERED: MORPHINE SULFATE 4 MG/ML SYRINGE IVP ONE (22:01)
[2018-01-17 22:28] LABS: Glucose,Whole Blood 131 mg/dL (75-99)
[2018-01-17] MEDS: ceFAZolin 1,000 MG in DEXTROSE/WATER 1 50ML.BAG IVPB SCH (23:05)
[2018-01-17] MEDS: SODIUM CHLORIDE 0.9% 1,000 ML IV SCH (23:06)
[2018-01-18] MEDS ORDERED: amLODIPine 5 MG TAB PO STA (00:15)
[2018-01-18] MEDS: ZOLPIDEM 5 MG TAB PO PRN ×2 (00:42→20:33)
[2018-01-18 03:21] LABS: HCT 43.5 % (39.0-53.0); HGB 14.9 gm/dL (13.0-17.5); MCH 30.9 pg (25.0-35.0); MCHC 34.3 g/dL (31.0-37.0); Mean Platelet Volume 7.6; Platelet Count 150 k/uL (150-450); RBC 4.83 m/uL (4.30-5.90); RDW 14.2 % (11.5-15.5); WBC 6.9 k/uL (3.8-10.6)
[2018-01-18 03:37] LABS: Cholesterol 117 mg/dL (<200); HDL Cholesterol 38 mg/dL (40-60); LDL Cholesterol,Calculated 54 mg/dL (0-99); Triglycerides 127 mg/dL (<150)
[2018-01-18 03:39] LABS: ALT 28 U/L (21-72); AST 16 U/L (17-59); Alkaline Phosphatase 80 U/L (38-126); Anion Gap 10 mmol/L; Blood Urea Nitrogen 14 mg/dL (9-20); Carbon Dioxide 24 mmol/L (22-30); Chloride 106 mmol/L (98-107); Glucose 105 mg/dL (74-99); Magnesium 1.7 mg/dL (1.6-2.3); Potassium 4.1 mmol/L (3.5-5.1); Sodium 140 mmol/L (137-145); Total Bilirubin 0.4 mg/dL (0.2-1.3); Total Protein 6.5 g/dL (6.3-8.2)
[2018-01-18 03:50] LABS: INR 1.1 (<1.2); Prothrombin Time 10.5 sec (9.0-12.0)
[2018-01-18 03:54] LABS: Creatine Kinase MB 0.4 ng/mL (0.0-2.4); Troponin I 0.016 ng/mL (0.000-0.034)
[2018-01-18] MEDS ORDERED: MAGNESIUM SULFATE-D5W PMX 1 GM in DEXTROSE/WATER 1 100ML.BAG IVPB ONE (05:47)
[2018-01-18] MEDS ORDERED: hydrALAZINE HCL 50 MG TAB PO STA (05:47)
[2018-01-18] MEDS: HYDROcodone/APAP 10-325MG 1 EACH TAB PO PRN ×3 (06:38→22:58)
[2018-01-18] MEDS ORDERED: MORPHINE SULFATE 2 MG/ML SYRINGE IVP STA (07:21)
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
[2018-01-18] MEDS ORDERED: metFORMIN 500 MG TAB PO SCH (07:30)
--- NOTE | 2018-01-18 07:34 | CE ---
CARDIAC ELECTROPHYSIOLOGY REPORT DATE OF SERVICE: 01/17/2018. PROCEDURE: Transvenous temporary pacemaker. PERFORMED BY: Dr. Kip Lino. Moderate conscious sedation time was about 14 minutes. CLINICAL INFORMATION: Mr. Rakesh Neal is a 67-year-old gentleman with type 2 diabetes mellitus, hypertension, hyperlipidemia, who was recently hospitalized with a second- degree heart block that resolved after holding Coreg, came into the hospital with a complete heart block type picture with symptomatic sinus bradycardia and also syncope and collapse. He was advised a temporary pacemaker. Risks, benefits, options, rationale were explained. PROCEDURE NOTE: Under local anesthesia and strict aseptic precautions, a 6-Malay introducer was placed in the right femoral vein. There was some scar tissue with some difficulty advancing the sheath. Under fluoroscopic guidance, a balloon tipped 5-Malay pacemaker was positioned in the right ventricular apex. Excellent thresholds were achieved. The threshold was less than a 0.6 mV. The pacemaker was enclosed in a sleeve and the sheath was sutured and the pacemaker was set at a backup rate of 40 with MA of 5. He was sent to the ICU in a stable condition. The details of the procedure were discussed with the patient and his and I expect that he will be stable through the night and we will perform a permanent pacemaker tomorrow from left infraclavicular approach. MMODL / IJN: [id number] / [id number]
[2018-01-18] MEDS: ceFAZolin 1,000 MG in DEXTROSE/WATER 1 50ML.BAG IVPB SCH ×3 (08:40→23:01)
[2018-01-18] MEDS: amLODIPine 5 MG TAB PO SCH ×2 (08:41→20:31)
[2018-01-18] MEDS: ATORVASTATIN 10 MG TAB PO SCH (08:42)
[2018-01-18] MEDS ORDERED: ASPIRIN 325 MG TAB PO SCH (09:00)
[2018-01-18] MEDS ORDERED: ceFAZolin IN SWFI 2 GM/20 ML SYRINGE IVP ONE (09:03)
[2018-01-18] MEDS ORDERED: ceFAZolin 1,000 MG in SODIUM CHLORIDE 0.9% IRRIGATIO 250 ML IRRIGATION ONE (09:03)
[2018-01-18] MEDS ORDERED: SODIUM CHLORIDE 0.9% 1,000 ML IV SCH ×2 (09:15)
[2018-01-18 09:57] LABS: Creatine Kinase MB 0.4 ng/mL (0.0-2.4); Troponin I 0.017 ng/mL (0.000-0.034)
[2018-01-18 10:01] VITALS: BMI 29.5
[2018-01-18] MEDS: traMADol 50 MG TAB PO PRN ×2 (11:10→19:35)
[2018-01-18] MEDS ORDERED: IOPAMIDOL-250 50ML BTL IV ONE (11:45)
[2018-01-18] MEDS ORDERED: MIDAZOLAM 2 MG/2 ML VIAL ONE (11:53)
[2018-01-18] MEDS ORDERED: MIDAZOLAM 2 MG/2 ML VIAL IVP ONE (12:00)
[2018-01-18] MEDS ORDERED: SODIUM CHLORIDE 0.9% 1,000 ML IV ONE (12:00)
[2018-01-18] MEDS ORDERED: LIDOCAINE 2% INJ 20 MG/ML SQ ONE (12:05)
[2018-01-18] MEDS: ceFAZolin IN SWFI 2 GM/20 ML SYRINGE IVP STA ×2 (12:10→12:15)
[2018-01-18] MEDS ORDERED: MORPHINE SULFATE 4 MG/ML SYRINGE ONE (12:57)
[2018-01-18] MEDS ORDERED: MORPHINE SULFATE 4 MG/ML SYRINGE IVP ONE (13:00)
[2018-01-18] MEDS ORDERED: ACETAMINOPHEN TAB 500 MG TAB PO PRN (13:19)
[2018-01-18] MEDS ORDERED: HYDROcodone/APAP 10-325MG 1 EACH TAB PO PRN (13:19)
[2018-01-18] MEDS ORDERED: METHOCARBAMOL 500 MG TAB PO PRN (13:19)
[2018-01-18] MEDS ORDERED: DOCUSATE 100 MG CAP PO PRN (13:19)
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
[2018-01-18] MEDS ORDERED: amLODIPine 5 MG TAB ONE (13:40)
[2018-01-18] MEDS ORDERED: amLODIPine 5 MG TAB PO ONE (13:48)
--- NOTE | 2018-01-18 14:28 | PCN ---
PROCEDURE NOTE DATE OF SERVICE: 01/18/2018. PROCEDURE: Dual-chamber permanent pacemaker from left infraclavicular approach. PERFORMED BY: Dr. Basilia Lino. Moderate conscious sedation time was 82 minutes. CLINICAL INFORMATION: Mr. Rakesh Neal is a 67-year-old gentleman who was seen by me yesterday when he presented to the emergency room with a syncope and collapse. He had a complete heart block and was seen by me about 2 weeks ago when he presented with a 2 to 2:1 block and after stopping Coreg, his VT interval normalized. He was discharged but came in with syncope and collapse. Yesterday, he underwent a temporary pacemaker uneventfully. He was brought in for the permanent pacemaker this afternoon. PROCEDURE NOTE: Under local anesthesia and strict aseptic precautions, using a micropuncture needle technique, I gained access to the left axillary vein under fluoroscopic guidance after a venogram. Subsequently, I have made a linear incision about 2 inches medial and parallel to the left deltopectoral groove and this was a 3.5 inch incision. A subfascial pocket was made using blunt dissection and cautery. The pocket was soaked with antibiotic sponge. Subsequently, another access point was achieved medial to the previous access point using a micropuncture technique. Under fluoroscopic guidance, a 6-Kiswahili introducer was placed and through this a ventricular lead was positioned in the right ventricular apex. Good thresholds and sensitivities were obtained. I then secured this lead with 0-Silk to the underlying muscle. I then advanced the atrial lead through the through the other access point through a 6-Kiswahili introducer. This was positioned in the right atrial appendage. The good thresholds and sensitivities were obtained. The lead was then secured to the underlying muscle using an 0-Silk suture. Diaphragmatic pacing was checked and the leads were checked in the SANTOS and INDIAN positions. Subsequently, the leads were connected to the pulse generator and the pocket was closed in 2 layers. There was some oozing and a D Stat was injected. Good hemostasis was secured. The pocket was closed in 2 layers and patient was quite stable, tolerated the procedure well. He will continue antibiotics for 4 more doses and I expect that he will be discharged tomorrow if he remains stable. PACEMAKER INFORMATION: Pulse generator burr bench hand [employer] model number Assurity MRI 2272. Serial #[id number]. The atrial lead burr bench hand [employer] model Tendril STS 2088 TC/52, serial #[id number]. The ventricular lead burr bench hand [employer] model Tendril STS 2088 TC/58 cm, serial #[id number]. The ventricular lead was in the right ventricular apex. Atrial lead was in the right atrial appendage. Atrial threshold was 0.75 V at 0.4 milliseconds. The P-waves were 4.0 mV, lead impedance was 540 ohms. The ventricular lead threshold was 0.75 V at 0.4 milliseconds. R-waves were 4.7 mV, impedance was 560 ohms. The pacemaker was set at a low rate of 150, high rate of 125 with a paced delay of 250 milliseconds and sensed delay of 225 milliseconds. Patient tolerated the procedure well without complications. She will get a chest x-ray prior to going to the room. RADHA / KRISTINA: [id number] /
--- NOTE | 2018-01-18 14:40 | XR ---
EXAMINATION TYPE: XR chest 1V portable DATE OF EXAM: 01/18/2018 COMPARISON: 01/17/2018 HISTORY: Lead placement check TECHNIQUE: Single frontal view of the chest is obtained. FINDINGS: There is an overall placement of a dual lead left-sided cardiac device with right atrial a nd ventricular leads. Minimal left basilar subsegmental atelectasis is slightly more pronounced than on the prior exam of 01/17/2018. Similar-appearing right basilar peripheral subsegmental atelectasis i s also noted. Cardia mediastinal silhouette is upper limits of normal and unchanged. Osseous structur es are grossly intact. No focal consolidation, pleural effusion or pneumothorax. IMPRESSION: Newly placed dual lead left-sided cardiac device is described above with bibasilar subse gmental atelectasis. No postprocedural pneumothorax.
[2018-01-18 17:15] LABS: Glucose,Whole Blood 122 mg/dL (75-99)
[2018-01-18] MEDS: hydrALAZINE HCL 50 MG TAB PO SCH ×2 (17:15→22:59)
[2018-01-18] MEDS: SODIUM CHLORIDE 0.9% 1,000 ML IV SCH (17:17)
[2018-01-18 17:20] LABS: Hemoglobin A1C 5.2 % (4.0-6.0)
[2018-01-18] MEDS: LOSARTAN 50 MG TAB PO SCH (17:21)
[2018-01-18] MEDS: INSULIN ASPART 100 UNIT/ML 1 ML 10 ML VIAL SQ SCH ×3 (17:27→21:00)
[2018-01-18] MEDS ORDERED: ceFAZolin IN SWFI 2 GM/20 ML SYRINGE IVP SCH (18:00)
[2018-01-18] MEDS ORDERED: cloNIDine HCL 0.2 MG TAB PO STA (19:49)
[2018-01-18] MEDS: SYMBICORT 160-4.5 MCG INHALER INHALATION SCH (20:23)
[2018-01-18 20:37] LABS: Glucose,Whole Blood 148 mg/dL (75-99)
[2018-01-18] MEDS ORDERED: ATORVASTATIN 10 MG TAB PO SCH (21:00)
[2018-01-18] MEDS ORDERED: ASPIRIN 81 MG PO SCH (21:00)
[2018-01-18] MEDS ORDERED: hydrALAZINE HCL 50 MG TAB PO SCH (21:00)
[2018-01-18] MEDS ORDERED: DULoxetine HCL 60 MG CAPSULE.DR PO SCH (21:00)
[2018-01-19] MEDS: SODIUM CHLORIDE 0.9% 1,000 ML IV SCH (04:04)
[2018-01-19 04:15] LABS: Basophils % (A) 0 %; Eosinophils # (A) 0.1 k/uL (0-0.7); Eosinophils % (A) 2 %; HCT 46.1 % (39.0-53.0); HGB 15.5 gm/dL (13.0-17.5); Lymphocytes % (A) 14 %; MCH 29.5 pg (25.0-35.0); MCHC 33.6 g/dL (31.0-37.0); MCV 87.8 fL (80.0-100.0); Mean Platelet Volume 7.4; Monocytes # (A) 0.5 k/uL (0-1.0); Monocytes % (A) 7 %; Neutrophils # (A) 5.4 k/uL (1.3-7.7); Neutrophils % (A) 76 %; Platelet Count 155 k/uL (150-450); RBC 5.25 m/uL (4.30-5.90); RDW 14.2 % (11.5-15.5); WBC 7.2 k/uL (3.8-10.6)
[2018-01-19 04:25] LABS: Anion Gap 10 mmol/L; Blood Urea Nitrogen 12 mg/dL (9-20); Calcium 10.7 mg/dL (8.4-10.2); Carbon Dioxide 25 mmol/L (22-30); Chloride 104 mmol/L (98-107); Glucose 109 mg/dL (74-99); Magnesium 1.8 mg/dL (1.6-2.3); Sodium 139 mmol/L (137-145)
[2018-01-19] MEDS ORDERED: Magnesium Replacement Protocol 1 EACH MISC MISCELLANE PRN (05:02)
[2018-01-19] MEDS: ceFAZolin 1,000 MG in DEXTROSE/WATER 1 50ML.BAG IVPB SCH (05:05)
[2018-01-19] MEDS: MAGNESIUM SULFATE-D5W PMX 1 GM in DEXTROSE/WATER 1 100ML.BAG IVPB SCH ×2 (06:15→08:14)
[2018-01-19 07:14] LABS: Glucose,Whole Blood 113 mg/dL (75-99)
[2018-01-19] MEDS: SYMBICORT 160-4.5 MCG INHALER INHALATION SCH (08:07)
[2018-01-19] MEDS: IPRATROPIUM 0.5 MG/2.5 ML NEBU INHALATION SCH ×2 (08:07→11:30)
[2018-01-19] MEDS: INSULIN ASPART 100 UNIT/ML 1 ML 10 ML VIAL SQ SCH (08:15)
[2018-01-19 08:23] VITALS: TEMP 96.8
[2018-01-19] MEDS ORDERED: METOPROLOL TARTRATE 25 MG TAB PO SCH (09:00)
[2018-01-19] MEDS ORDERED: ALLOPURINOL 100 MG TAB PO SCH (09:00)
[2018-01-19] MEDS ORDERED: METOPROLOL TARTRATE 50 MG TAB PO SCH (09:00)
[2018-01-19] MEDS: hydrALAZINE HCL 50 MG TAB PO SCH (09:14)
[2018-01-19] MEDS: LOSARTAN 50 MG TAB PO SCH (09:15)
[2018-01-19] MEDS: ATORVASTATIN 10 MG TAB PO SCH (09:15)
[2018-01-19] MEDS: amLODIPine 5 MG TAB PO SCH (09:15)
[2018-01-19 09:19] VITALS: BP 138/77; RESP 20
--- NOTE | 2018-01-19 09:25 | XR ---
EXAMINATION: XR chest 2V DATE AND TIME: 01/19/2018 8:06 AM ORDERING PROVIDER: Umesh Lino MD CLINICAL INDICATION: pacemaker check TECHNIQUE: PA and lateral COMPARISON: AP upright portable 01/18/2019 at 2:16 PM DESCRIPTION: Cardiac pacemaker noted. The hemidiaphragms are elevated consistent with low lung inflation the moment of x-ray exposure. A linear band of added opacity is noted at the right lung base, likely to represent subsegmental atel ectasis in the right lower lobe. The lungs are otherwise clear. The pleural spaces are negative. Cardiomediastinal silhouette and bones and soft tissues are unremarkable. IMPRESSION: NO ACUTE PROCESS.
[2018-01-19 09:43] VITALS: PULSE 86
--- NOTE | 2018-01-19 10:58 | P.DS ---
Providers Date of admission: 01/17/18 21:03 Attending physician: Melvi Alvares Consults: 01/17/18 21:04 Consult Physician Urgent Consulting Provider: Umesh Lino Consult Reason/Comments: known Do you want consulting provider notified?: Yes Primary care physician: [facility] Course: Patient was admitted for symptomatic severe sinus bradycardia. Patient was admitted with second-degree AV block during last admission at the time his beta jaja was discontinued in spite of which patient ended up having a syncopal episode patient received a permanent pacemaker patient is being discharged today and was cleared by cardiology today. PHYSICAL EXAMINATION: GENERAL: The patient is alert and oriented x3, not in any acute distress. Well developed, well nourished. HEENT: Pupils are round and equally reacting to light. EOMI. No scleral icterus. No conjunctival pallor. Normocephalic, atraumatic. No pharyngeal erythema. No thyromegaly. CARDIOVASCULAR: S1 and S2 present. No murmurs, rubs, or gallops. Packing in the left side of the chest. PULMONARY: Chest is clear to auscultation, no wheezing or crackles. ABDOMEN: Soft, nontender, nondistended, normoactive bowel sounds. No palpable organomegaly. MUSCULOSKELETAL: No joint swelling or deformity. EXTREMITIES: No cyanosis, clubbing, or pedal edema. NEUROLOGICAL: Gross neurological examination did not reveal any focal deficits. SKIN: No rashes. Assessment and Plan Plan: -Syncope: Secondary to bradycardia mostly sinus bradycardia at this time but apparently may have had complete heart block. had permanent pacemaker placement -COPD without any acute exacerbation High-recent traumatic pneumothorax -Primary hyperparathyroidism -Can actually sees --Hypertension -Hyperlipidemia -Type 2 diabetes mellitus -History of gout Patient Condition at Discharge: Serious Plan - Discharge Summary New Discharge Prescriptions: No Action Aspirin EC [Ecotrin Low Dose] 81 mg PO HS Colchicine [Colcrys] 0.6 mg PO DAILY PRN PRN Reason: Mild Pain Tiotropium [place] [Spiriva] 1 cap INHALATION RT-DAILY Budesonide/Formoterol Fumarate [Symbicort 160-4.5 Mcg Inhaler] 2 puff INHALATION RT-BID HYDROcodone/APAP 10-325MG [[place] 10-325] 1 tab PO DAILY PRN PRN Reason: moderate pain Allopurinol [Zyloprim] 100 mg PO DAILY traZODone HCL 50 mg PO HS PRN PRN Reason: Insomnia Acetaminophen Tab [Tylenol] 500 - 1,000 mg PO Q6HR PRN PRN Reason: Mild Pain Docusate [Colace] 200 mg PO BID DULoxetine HCL [Cymbalta] 60 mg PO HS metFORMIN HCL [Glucophage] 500 mg PO BID Methocarbamol [Robaxin] 500 mg PO Q8H PRN PRN Reason: Pain amLODIPine [Norvasc] 5 mg PO DAILY #30 tab Atorvastatin [Lipitor] 5 mg PO HS Discharge Medication List Aspirin EC [Ecotrin Low Dose] 81 mg PO HS 05/18/14 [History] Budesonide/Formoterol Fumarate [Symbicort 160-4.5 Mcg Inhaler] 2 puff INHALATION RT-BID 10/11/17 [History] Colchicine [Colcrys] 0.6 mg PO DAILY PRN 10/11/17 [History] Tiotropium [place] [Spiriva] 1 cap INHALATION RT-DAILY 10/11/17 [History] Acetaminophen Tab [Tylenol] 500 - 1,000 mg PO Q6HR PRN 12/31/17 [History] Allopurinol [Zyloprim] 100 mg PO DAILY 12/31/17 [History] Docusate [Colace] 200 mg PO BID 12/31/17 [History] HYDROcodone/APAP 10-325MG [[place] 10-325] 1 tab PO DAILY PRN 12/31/17 [History] traZODone HCL 50 mg PO HS PRN 12/31/17 [History] DULoxetine HCL [Cymbalta] 60 mg PO HS 01/01/18 [History] Methocarbamol [Robaxin] 500 mg PO Q8H PRN 01/01/18 [History] metFORMIN HCL [Glucophage] 500 mg PO BID 01/01/18 [History] amLODIPine [Norvasc] 5 mg PO DAILY #30 tab 01/02/18 [Rx] Atorvastatin [Lipitor] 5 mg PO HS 01/17/18 [History] Follow up Appointment(s)/Referral(s): Maninder Ramsay DO [Primary Care Provider] - 3 Days Patient Instructions/Handouts: Pacemaker (DC), Bradycardia (DC) Discharge Disposition: HOME SELF-CARE
== END 2018-01-19 12:15 | disposition home or self-care (01) | DRG 242 ==
LOC: EC 20:23 → 6ICU 21:03
PROVIDERS: ADMIT Hospitalist; ATTEND Hospitalist
PROC: 02H63JZ Insertion of Pacemaker Lead into Right Atrium, Percutaneous Approach (ICD-10-PCS; 2018-01-18)
PROC: 02HK3JZ Insertion of Pacemaker Lead into Right Ventricle, Percutaneous Approach (ICD-10-PCS; 2018-01-18)
PROC: 0JH606Z Insertion of Pacemaker, Dual Chamber into Chest Subcutaneous Tissue and Fascia, Open Approach (ICD-10-PCS; principal; 2018-01-18 12:00)
DX: R00.1 Bradycardia, unspecified (principal); I46.9 Cardiac arrest, cause unspecified; I44.2 Atrioventricular block, complete; E11.9 Type 2 diabetes mellitus without complications; E21.0 Primary hyperparathyroidism; E78.5 Hyperlipidemia, unspecified; I10 Essential (primary) hypertension; I25.10 Atherosclerotic heart disease of native coronary artery without angina pectoris; J44.9 Chronic obstructive pulmonary disease, unspecified; I44.1 Atrioventricular block, second degree; Z79.84 Long term (current) use of oral hypoglycemic drugs; Z87.891 Personal history of nicotine dependence; Z79.899 Other long term (current) drug therapy; Z79.51 Long term (current) use of inhaled steroids; Z87.820 Personal history of traumatic brain injury; V09.9XXS Pedestrian injured in unspecified transport accident, sequela; M10.9 Gout, unspecified; Z79.82 Long term (current) use of aspirin
CPT/HCPCS: 33208; 33210; 36415; 71045; 71046; 80048; 80053; 80061; 82550; 82553; 83036; 83735; 84100; 84484; 85025; 85027; 85610; 85730; 93005; 94640; 96372; 96374; 96375; 99291

== ENCOUNTER 2018-01-20 04:25 | Inpatient (IN) | payer OTHER, MEDICARE, BC ==
[2018-01-20] MEDS ORDERED: SODIUM CHLORIDE 0.9% 500 ML IV STA (04:32)
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
[2018-01-20 04:57] LABS: Basophils % (A) 1 %; Eosinophils # (A) 0.1 k/uL (0-0.7); Eosinophils % (A) 1 %; HCT 49.3 % (39.0-53.0); HGB 16.5 gm/dL (13.0-17.5); Lymphocytes # (A) 1.3 k/uL (1.0-4.8); Lymphocytes % (A) 14 %; MCH 30.3 pg (25.0-35.0); MCHC 33.4 g/dL (31.0-37.0); MCV 90.6 fL (80.0-100.0); Mean Platelet Volume 7.5; Monocytes # (A) 0.8 k/uL (0-1.0); Monocytes % (A) 8 %; Neutrophils # (A) 6.9 k/uL (1.3-7.7); Neutrophils % (A) 75 %; Platelet Count 160 k/uL (150-450); RBC 5.44 m/uL (4.30-5.90); RDW 14.7 % (11.5-15.5); WBC 9.2 k/uL (3.8-10.6)
[2018-01-20 05:07] LABS: ALT 24 U/L (21-72); AST 14 U/L (17-59); Albumin 4.4 g/dL (3.5-5.0); Alkaline Phosphatase 90 U/L (38-126); Anion Gap 13 mmol/L; Blood Urea Nitrogen 14 mg/dL (9-20); Calcium 11.4 mg/dL (8.4-10.2); Carbon Dioxide 25 mmol/L (22-30); Chloride 104 mmol/L (98-107); Glucose 120 mg/dL (74-99); Magnesium 2.1 mg/dL (1.6-2.3); Sodium 142 mmol/L (137-145); Total Bilirubin 0.6 mg/dL (0.2-1.3); Total Protein 7.2 g/dL (6.3-8.2)
[2018-01-20 05:08] LABS: INR 1.1 (<1.2); Partial Thromboplastin Time 23.4 sec (22.0-30.0); Prothrombin Time 10.4 sec (9.0-12.0)
--- NOTE | 2018-01-20 05:25 | XR ---
EXAMINATION TYPE: XR chest 2V DATE OF EXAM: 01/20/2018 COMPARISON: 01/19/2018 HISTORY: Difficulty breathing TECHNIQUE: Frontal and lateral views of the chest are obtained. FINDINGS: There is no heart failure nor confluent pneumonic infiltrate. There is left axillary pacem izzy with the lead tips in the right ventricle. There is mild linear density at the left lung base. T here are chest leads. IMPRESSION: Mild subsegmental atelectasis at the left lung base. Normal heart. No change.
[2018-01-20 05:36] LABS: Creatine Kinase MB 0.4 ng/mL (0.0-2.4); Troponin I 0.018 ng/mL (0.000-0.034)
[2018-01-20] MEDS ORDERED: NITROGLYCERIN SL TABS 0.4 MG TAB SUBLINGUAL PRN (05:44)
[2018-01-20] MEDS ORDERED: ASPIRIN 81 MG PO ONE (08:45)
[2018-01-20] MEDS ORDERED: ATORVASTATIN 10 MG TAB PO ONE (08:45)
[2018-01-20] MEDS: amLODIPine 5 MG TAB PO SCH (08:52)
[2018-01-20 11:39] LABS: Glucose,Whole Blood 114 mg/dL (75-99)
[2018-01-20 11:54] LABS: Creatine Kinase 31 U/L (55-170)
[2018-01-20 12:07] LABS: Creatine Kinase MB 0.2 ng/mL (0.0-2.4); Troponin I <0.012 ng/mL (0.000-0.034)
[2018-01-20] MEDS ORDERED: ACETAMINOPHEN TAB 500 MG TAB PO PRN (12:35)
[2018-01-20] MEDS ORDERED: HYDROcodone/APAP 10-325MG 1 EACH TAB PO PRN (16:26)
[2018-01-20] MEDS ORDERED: COLCHICINE 0.6 MG EACH PO PRN (16:26)
[2018-01-20] MEDS ORDERED: METHOCARBAMOL 500 MG TAB PO PRN (16:26)
[2018-01-20 16:55] LABS: Glucose,Whole Blood 101 mg/dL (75-99)
[2018-01-20 17:03] LABS: Creatine Kinase 29 U/L (55-170)
[2018-01-20 17:17] LABS: Creatine Kinase MB <0.2 ng/mL (0.0-2.4); Troponin I <0.012 ng/mL (0.000-0.034)
--- NOTE | 2018-01-20 19:48 | CONS ---
CONSULTATION Mr. Neal is a 67-year-old male patient who came to the hospital because he found that his heart rate on pulse ox monitoring was beats per minute. He was very short of breath at that time. This was sudden onset shortness of breath. The patient states that he was lying in bed on his right side and he started coughing. Thereafter, he felt extremely short of breath for no reason and he took his pulse ox, the pulse ox showed that his pulse rate was in the high 20s and he got quite concerned. His called me in the middle of the night and I advised him to come to the hospital. He underwent a chest x-ray. I cannot see the lead very clearly because of the exposure level. The right atrial lead appears to be in normal position. The RV lead is definitely across tricuspid valve, but may not be up to the apex. I had the device interrogated today. I made him lie on his right side to sit up as well as lie flat. I tried to make him cough and that reproduces symptoms. His thresholds are excellent. His sensing is about 6 mV and previously it was 12 mV. PAST MEDICAL HISTORY: Heart block, status post . History of syncope in the past. Permanent pacemaker implanted by Dr. Kip Lino. Past medical history of complete heart block, CAD, asthma, diabetes, hypertension, dyslipidemia. ALLERGIES: PINEAPPLE. MEDICATIONS: Atorvastatin, metformin, Allopurinol, aspirin, in the past he was on amlodipine. REVIEW OF SYSTEMS: No fever, chills, or rigors. No cough or expectoration. No nausea, vomiting, or diarrhea. No hematuria or dysuria. No strokes or seizures. No skin lesions. No musculoskeletal complaints. PHYSICAL EXAMINATION: VITAL SIGNS: His heart rate is about 100 beats per minute. Blood pressure 143/91 mmHg. HEENT: Head and neck examination normal. CARDIOVASCULAR: Heart sounds are normal. CHEST: Lungs are clear to auscultation. EXTREMITIES: Extremities are warm. No edema. Pacemaker site is healing well. There is mild soakage, but no significant hematoma. IMPRESSION: 1. Complete heart block status post permanent pacemaker implantation. 2. Patient came in with shortness of breath associated with apparent heart rate of about 25 to 30 beats per minute, but the pacing thresholds are normal in different body positions, reduced. SUGGEST: Continue telemetry monitoring and upon discharge, 30 day event monitor should be prescribed to look for any intermittent loss of capture. MMODL / IJN: [id number] /
[2018-01-20] MEDS: SYMBICORT 160-4.5 MCG INHALER INHALATION SCH (20:25)
[2018-01-20 20:57] LABS: Glucose,Whole Blood 119 mg/dL (75-99)
[2018-01-20] MEDS ORDERED: ASPIRIN 81 MG PO SCH (21:00)
[2018-01-20] MEDS ORDERED: ATORVASTATIN 10 MG TAB PO SCH (21:00)
[2018-01-20] MEDS ORDERED: traZODone HCL 50 MG TAB PO PRN (21:00)
[2018-01-20] MEDS ORDERED: DULoxetine HCL 60 MG CAPSULE.DR PO SCH (21:00)
[2018-01-20] MEDS: METOPROLOL TARTRATE 50 MG TAB PO SCH (21:04)
[2018-01-20] MEDS: metFORMIN 500 MG TAB PO SCH (21:04)
[2018-01-20] MEDS: DOCUSATE 100 MG CAP PO SCH (21:04)
[2018-01-21 03:32] LABS: Cholesterol 107 mg/dL (<200); HDL Cholesterol 35 mg/dL (40-60); LDL Cholesterol,Calculated 45 mg/dL (0-99); Triglycerides 134 mg/dL (<150)
[2018-01-21 06:28] LABS: Glucose,Whole Blood 114 mg/dL (75-99)
[2018-01-21] MEDS: SYMBICORT 160-4.5 MCG INHALER INHALATION SCH (06:56)
[2018-01-21] MEDS: IPRATROPIUM 0.5 MG/2.5 ML NEBU INHALATION SCH ×2 (06:56→10:59)
[2018-01-21] MEDS ORDERED: ALLOPURINOL 100 MG TAB PO SCH (09:00)
[2018-01-21] MEDS ORDERED: ASPIRIN 81 MG PO SCH (09:00)
[2018-01-21] MEDS ORDERED: ATORVASTATIN 10 MG TAB PO SCH (09:00)
[2018-01-21] MEDS ORDERED: ASPIRIN 325 MG TAB PO SCH (09:00)
[2018-01-21 09:26] VITALS: BP 156/92; PULSE 106; RESP 16; TEMP 98.3
[2018-01-21] MEDS: DOCUSATE 100 MG CAP PO SCH (09:35)
[2018-01-21] MEDS: amLODIPine 5 MG TAB PO SCH (09:35)
[2018-01-21] MEDS: metFORMIN 500 MG TAB PO SCH (09:35)
[2018-01-21] MEDS: METOPROLOL TARTRATE 50 MG TAB PO SCH (09:36)
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
[2018-01-21 11:37] LABS: Glucose,Whole Blood 101 mg/dL (75-99)
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
--- NOTE | 2018-01-21 12:25 | P.DS ---
Providers Date of admission: 01/20/18 05:44 Expected date of discharge: 01/21/18 Attending physician: Melvi Alvares Consults: 01/20/18 05:44 Consult Physician Urgent Consulting Provider: [facility] Reason/Comments: Bradycardia, dyspnea Do you want consulting provider notified?: Yes Primary care physician: [facility] Course: This is a pleasant 67-year-old gentleman who presented to the hospital because of symptoms of sudden onset of shortness of breath. He states that he was lying on his bed on his right side when he started coughing, shortly thereafter he became extremely short of breath. He checked his pulse ox and heart rate at that time, heart rate was documented to be in the high 20s , for this reason he came to the emergency room for further evaluation. His device was interrogated and reviewed by Dr. Yan. His sensing was about 6 mV as previously 12 mV. Patient was seen and examined this morning, overall feeling well, denies any shortness of breath. Blood pressure 150/90 with a heart rate 106. Patient was reinitiated on beta jaja after admission here. Patient was admitted to telemetry for close monitoring; patient didn't have any episodes of tachycardia or bradycardia when in the hospital; cardiology consult was done; beta blockers are put on hold; patient underwent pacemaker check for appropriate functioning which was unremarkable; cardiology saw patient and recommended to continue all current medications and also recommended patient picks up her 30 day event monitor at the office prior to discharge to assess for intermittent loss of capture; patient understands and agrees with plan of care Pertinent Studies: 30 day event monitor pulse discharged Procedures: none Patient Condition at Discharge: Fair Plan - Discharge Summary Discharge Rx Participant: Yes New Discharge Prescriptions: No Action Aspirin EC [Ecotrin Low Dose] 81 mg PO HS Colchicine [Colcrys] 0.6 mg PO DAILY PRN PRN Reason: Mild Pain Tiotropium [place] [Spiriva] 1 cap INHALATION RT-DAILY Budesonide/Formoterol Fumarate [Symbicort 160-4.5 Mcg Inhaler] 2 puff INHALATION RT-BID HYDROcodone/APAP 10-325MG [[place] 10-325] 1 tab PO BID PRN PRN Reason: Pain Allopurinol [Zyloprim] 100 mg PO DAILY traZODone HCL 50 mg PO HS PRN PRN Reason: Insomnia Acetaminophen Tab [Tylenol] 500 - 1,000 mg PO Q6HR PRN PRN Reason: Mild Pain Docusate [Colace] 200 mg PO BID DULoxetine HCL [Cymbalta] 60 mg PO HS metFORMIN HCL [Glucophage] 500 mg PO BID Methocarbamol [Robaxin] 500 mg PO Q8H PRN PRN Reason: Pain amLODIPine [Norvasc] 5 mg PO DAILY #30 tab Atorvastatin [Lipitor] 5 mg PO HS Discharge Medication List Aspirin EC [Ecotrin Low Dose] 81 mg PO HS 05/18/14 [History] Budesonide/Formoterol Fumarate [Symbicort 160-4.5 Mcg Inhaler] 2 puff INHALATION RT-BID 10/11/17 [History] Colchicine [Colcrys] 0.6 mg PO DAILY PRN 10/11/17 [History] Tiotropium [place] [Spiriva] 1 cap INHALATION RT-DAILY 10/11/17 [History] Acetaminophen Tab [Tylenol] 500 - 1,000 mg PO Q6HR PRN 12/31/17 [History] Allopurinol [Zyloprim] 100 mg PO DAILY 12/31/17 [History] Docusate [Colace] 200 mg PO BID 12/31/17 [History] HYDROcodone/APAP 10-325MG [[place] 10-325] 1 tab PO BID PRN 12/31/17 [History] traZODone HCL 50 mg PO HS PRN 12/31/17 [History] DULoxetine HCL [Cymbalta] 60 mg PO HS 01/01/18 [History] Methocarbamol [Robaxin] 500 mg PO Q8H PRN 01/01/18 [History] metFORMIN HCL [Glucophage] 500 mg PO BID 01/01/18 [History] amLODIPine [Norvasc] 5 mg PO DAILY #30 tab 01/02/18 [Rx] Atorvastatin [Lipitor] 5 mg PO HS 01/17/18 [History] Follow up Appointment(s)/Referral(s): Umesh Lino MD [STAFF PHYSICIAN] - 1 Week (Office to call patient with follow up appointment.) Maninder Ramsay DO [Primary Care Provider] - 02/01/18 10:00 am ([place] [address], [place] [address] ext. [phone] Please keep previous follow up appointment. ) Patient Instructions/Handouts: Bradycardia (DC) Activity/Diet/Wound Care/Special Instructions: 30 day event monitor on discharge- please pickler helper at [facility] at 1: 00 PM. Discharge Disposition: HOME SELF-CARE
== END 2018-01-21 13:56 | disposition home or self-care (01) | DRG 310 ==
LOC: EC 04:25 → 6SEL 05:44
PROVIDERS: ADMIT Hospitalist; ATTEND Hospitalist
PROC: 4B02XSZ Measurement of Cardiac Pacemaker, External Approach (ICD-10-PCS; principal; 2018-01-20)
DX: R00.1 Bradycardia, unspecified (principal); I44.2 Atrioventricular block, complete; E83.52 Hypercalcemia; E86.0 Dehydration; I25.10 Atherosclerotic heart disease of native coronary artery without angina pectoris; I10 Essential (primary) hypertension; J44.9 Chronic obstructive pulmonary disease, unspecified; E11.9 Type 2 diabetes mellitus without complications; E21.0 Primary hyperparathyroidism; E78.5 Hyperlipidemia, unspecified; Z87.891 Personal history of nicotine dependence; Z95.0 Presence of cardiac pacemaker; Z79.51 Long term (current) use of inhaled steroids; Z79.84 Long term (current) use of oral hypoglycemic drugs; Z79.899 Other long term (current) drug therapy
CPT/HCPCS: 36415; 71046; 80053; 80061; 82550; 82553; 83735; 84484; 85025; 85610; 85730; 93005; 94640; 94760; 96360; 99285

== ENCOUNTER → 2018-06-14 | Outpatient (CLI) | payer OTHER ==
[2018-06-14 13:50] LABS: Anion Gap 8 mmol/L; Blood Urea Nitrogen 16 mg/dL (9-20); Calcium 11.3 mg/dL (8.4-10.2); Carbon Dioxide 24 mmol/L (22-30); Chloride 109 mmol/L (98-107); Glucose 160 mg/dL (74-99); Potassium 4.6 mmol/L (3.5-5.1); Sodium 141 mmol/L (137-145)
--- NOTE | 2018-06-14 14:49 | CT ---
EXAMINATION TYPE: CT urogram wo/w con DATE OF EXAM: 06/14/2018 COMPARISON: None HISTORY: Gross hematuria. CT DLP: 4578 mGycm CONTRAST: Performed and without and with IV Contrast, patient injected with 100 mL of Isovue M300. CT Urography was performed with unenhanced followed by enhanced images of the kidneys, ureters and ur inary bladder. Delayed images were obtained. 3d reconstruction was perfromed at a separate work sta tion. FINDINGS: KIDNEYS/BLADDER: No hydronephrosis. No distinct solid renal mass. Bilateral renal cystic changes no brando with simple cysts identified lower pole right kidney measuring 3.5 cm. Largest cyst left kidney m easures 2.9 cm. 3 mm nonobstructing calculus mid pole right kidney. Urinary bladder grossly unremarka ble. LUNG BASES-: No visible nodule. No infiltrate. LIVER/GB: No calcified gallstones. No space occupying hepatic lesion. Biliary tree is of normal ca liber. PANCREAS: No inflammation. No distinct mass. SPLEEN: No splenic enlargement. No lesion seen. ADRENALS: No nodule. No thickening. BOWEL: Normal appendix. Normal bowel caliber. No inflammation. GENITAL ORGANS: No gross abnormality. LYMPH NODES: No greater than 1cm abdominal or pelvic lymph nodes are appreciated. AORTA: No significant abnormality. OSSEOUS STRUCTURES: No significant abnormality is seen. OTHER: No significant additional abnormality is seen. IMPRESSION: 1. No distinct abnormality to account for the patient's symptoms. Bilateral simple renal cysts noted. Nonobstructing right renal calculus.
== END | disposition home or self-care (01) ==
LOC: RADCTMAIN 12:46
PROVIDERS: ATTEND Physician Assistant
DX: N20.0 Calculus of kidney (principal); N28.1 Cyst of kidney, acquired
CPT/HCPCS: 80048; 74178; 36415; 74400; Q9967

== ENCOUNTER 2018-10-25 06:35 | Day surgery (SDC) | payer OTHER ==
[~2018-10-25 06:35] MED LIST changes: +ALPRAZolam 0.25 MG TAB PO PRN; +ALPRAZolam 0.5 MG TAB PO PRN; -LACTATED RINGERS 1,000 ML IV SCH; -LIDOCAINE 1% 20 ML VIAL (10MG/ML) FOR IV START INTRADERMA PRN; +NITROGLYCERIN SL TABS 0.4 MG TAB SUBLINGUAL PRN; +SODIUM CHLORIDE 0.9% 1,000 ML in EMPTY BAG 1 BAG IV ONE
[2018-10-25] MEDS ORDERED: ASPIRIN 325 MG TAB PO ONE (07:00)
[2018-10-25] MEDS ORDERED: ATORVASTATIN 80 MG TAB PO ONE (07:00)
[2018-10-25 07:27] LABS: Glucose,Whole Blood 132 mg/dL (75-99)
[2018-10-25] MEDS ORDERED: SODIUM CHLORIDE 0.9% 1,000 ML IV ONE (07:27)
[2018-10-25 07:29] VITALS: RESP 16; TEMP 97.9
[2018-10-25] MEDS ORDERED: fentaNYL (PF) 50 MCG/ML 2 ML AMP IVP ONE (07:46)
[2018-10-25] MEDS ORDERED: LIDOCAINE 1% INJ 10MG/ML (20 ML MDV) SQ ONE (07:49)
[2018-10-25] MEDS ORDERED: MIDAZOLAM 2 MG/2 ML VIAL IVP ONE (07:49)
[2018-10-25] MEDS ORDERED: VERAPAMIL SYRINGE (5 MG/10 ML) INTRAARTER ONE (07:50)
[2018-10-25] MEDS ORDERED: HEPARIN SODIUM 1,000 UN/ML (10ML VL) IV ONE (07:59)
[2018-10-25] MEDS ORDERED: IOPAMIDOL-370 125ML BTL INJ ONE (08:02)
[2018-10-25] MEDS ORDERED: COLCHICINE 0.6 MG EACH PO PRN (08:14)
[2018-10-25] MEDS ORDERED: CALCIUM CARBONATE 500 MG CHEWABLE PO PRN (08:14)
[2018-10-25] MEDS ORDERED: METHOCARBAMOL 500 MG TAB PO PRN (08:14)
[2018-10-25] MEDS ORDERED: RX INFO: IV CONTRAST WAS GIVEN 1 EACH MISC MISCELLANE PRN (08:14)
[2018-10-25] MEDS ORDERED: SODIUM CHLORIDE 0.9% 1,000 ML IV SCH (08:15)
--- NOTE | 2018-10-25 08:47 | CC ---
CARDIAC CATHETERIZATION REPORT Mr. Neal is a 68-year-old male with known history of hypertension, hyperlipidemia, diabetes mellitus, who has been complaining of dyspnea on exertion, underwent myocardial perfusion imaging that revealed evidence of inducible ischemia. In view of that, recommendation was made regarding cardiac catheterization. The procedure as well as the risks and the complications were discussed with the patient who is in full understanding and agreement. PROCEDURE: Patient was brought to laboratory inspector in a fasting semi-sedated state after receiving fentanyl and Benadryl and achieving moderate conscious sedated state. Using Xylocaine anesthesia in the Seldinger technique a 6-Sammarinese sheath was introduced in the right radial artery. Selective right and left coronary angiography was performed using 5- Sammarinese 3.5 bend right and left [place] catheter. Multiple views of the coronary artery including hemiaxial views obtained. Following that, 5-Sammarinese tight pigtail catheter was introduced in the left ventricle and a 30-degree SANTOS view of the left ventricle was obtained. Following that, catheter and sheath were removed. Hemostasis was obtained with deployment of a TR band. There was no immediate complication. Patient was returned to his room in stable condition. Of note, the patient received 5000 units of intravenous heparin as well as intra-arterial verapamil. FINDINGS: FLUOROSCOPY: There was calcification involving the left anterior descending artery and the left main artery. LEFT MAIN: This is a large-sized vessel bifurcating in left circumflex and left anterior descending artery. Left main coronary artery has a 10% plaque distally without any evidence of high-grade stenosis. LEFT ANTERIOR DESCENDING ARTERY: This is a large-sized vessel reaching to the apex with a wraparound apex segment giving rise to a moderately sized diagonal branch in mid segment. At the takeoff of the diagonal branch, there is a 40% plaque. The rest of the vessel has no high-grade stenosis. LEFT CIRCUMFLEX: This is a nondominant vessel giving rise to 2 obtuse marginal branches. The first one is large in caliber. The left circumflex obtuse marginal branch has a 20% to 30% plaque without any evidence of high-grade stenosis. RIGHT CORONARY ARTERY: This is a dominant vessel, small in caliber giving rise to a small PDA. The right coronary artery proximally has a 50% plaque. The rest of the vessel has no high-grade stenosis. LEFT VENTRICULOGRAM: Left ventriculogram was performed in 30-degree SANTOS view and revealed a normal left ventricular size and systolic function. Ejection fraction is 60%. There was no significant mitral regurgitation. HEMODYNAMICS: There was no gradient across the aortic valve. The left ventricular end- diastolic pressure was 16 to 20 mmHg. CONCLUSION: 1. Calcified left main and left anterior descending artery. 2. Mild to moderate triple-vessel coronary artery disease. 3. Normal left ventricular size and systolic function. RECOMMENDATION: In view of finding anatomy, I recommend continue medical therapy with aggressive coronary risk modifications that have been initiated. Those findings and recommendation were discussed with the patient and his family and are in full understanding and agreement. Duration of procedure is 18 minutes. MMODL / IJN: [id number] /
[2018-10-25] MEDS ORDERED: METOPROLOL TARTRATE 50 MG TAB PO SCH (09:00)
[2018-10-25] MEDS ORDERED: HYDROcodone/APAP 7.5-325MG 1 EACH TAB PO SCH (09:00)
[2018-10-25] MEDS ORDERED: amLODIPine 5 MG TAB PO SCH (09:00)
[2018-10-25] MEDS ORDERED: ALLOPURINOL 100 MG TAB PO SCH (09:00)
[2018-10-25] MEDS ORDERED: DOCUSATE 100 MG CAP PO SCH (09:00)
[2018-10-25 13:04] VITALS: BP 140/78; PULSE 67
[2018-10-25] MEDS ORDERED: SYMBICORT 160-4.5 MCG INHALER INHALATION SCH (20:00)
[2018-10-25] MEDS ORDERED: NON-FORMULARY DRUG (Aspirin Ec 81 MG) PO SCH (21:00)
[2018-10-25] MEDS ORDERED: MELATONIN 20 MG PO SCH (21:00)
[2018-10-25] MEDS ORDERED: FAMOTIDINE 20 MG TAB PO SCH (21:00)
[2018-10-25] MEDS ORDERED: DULoxetine HCL 60 MG CAPSULE.DR PO SCH (21:00)
[2018-10-25] MEDS ORDERED: ATORVASTATIN 10 MG TAB PO SCH (21:00)
[2018-10-26] MEDS ORDERED: NON-FORMULARY DRUG (Tiotropium Bromide [Spiriva] 1 CAP) INHALATION SCH (08:00)
== END 2018-10-25 13:20 | disposition home or self-care (01) ==
LOC: CATHCVL 06:35
PROVIDERS: ATTEND Internal Medicine Interventional Cardiology
DX: I25.10 Atherosclerotic heart disease of native coronary artery without angina pectoris (principal); R94.39 Abnormal result of other cardiovascular function study; I10 Essential (primary) hypertension; E11.9 Type 2 diabetes mellitus without complications; Z95.0 Presence of cardiac pacemaker; E78.2 Mixed hyperlipidemia; Z79.82 Long term (current) use of aspirin; Z79.51 Long term (current) use of inhaled steroids; Z79.84 Long term (current) use of oral hypoglycemic drugs; Z79.899 Other long term (current) drug therapy
CPT/HCPCS: 93458; C1894; C1769; J2250; J2001; J3010; J1644; Q9967